=== PATIENT | male | born 1975 | race African-American/Black ===

== ENCOUNTER 2017-10-08 08:00 | Day surgery (SDC) | payer BC ==
[2017-10-05 12:34] VITALS: BMI 22.6
[~2017-10-08 08:00] MED LIST: DEXAMETHASONE SOD PHOSPHATE 10 MG/ML 1 ML VIAL IV ONE; LACTATED RINGERS 1,000 ML IV SCH; LIDOCAINE 1% 20 ML VIAL (10MG/ML) FOR IV START INTRADERMA PRN; MIDAZOLAM 2 MG/2 ML VIAL IV PRN; MORPHINE SULFATE 2 MG/ML SYRINGE IV PRN; ONDANSETRON 4 MG/2 ML VIAL IVP ONE; SCOPOLAMINE 1.5MG/72HR PATCH TRANSDERM ONE; ceFAZolin IN SWFI 2 GM/20 ML SYRINGE IVP ONE
[2017-10-08] MEDS ORDERED: fentaNYL (PF) 50 MCG/ML 2 ML AMP ONE (09:24)
[2017-10-08] MEDS ORDERED: PROPOFOL 10 MG/ML 20 ML VIAL IV ONE ×2 (09:24)
[2017-10-08] MEDS ORDERED: ROCURONIUM BROMIDE 10 MG/ML 10 ML VIAL IV ONE (09:24)
[2017-10-08] MEDS ORDERED: MIDAZOLAM 2 MG/2 ML VIAL ONE (09:24)
[2017-10-08] MEDS ORDERED: GLYCOPYRROLATE 0.2 MG/ML 2 ML VIAL ONE (09:24)
[2017-10-08] MEDS ORDERED: NEOSTIGMINE 1 MG/ML 10 ML VIAL ONE (09:24)
[2017-10-08] MEDS ORDERED: LIDOCAINE 1% INJ 10MG/ML (20 ML MDV) ONE (09:24)
[2017-10-08] MEDS ORDERED: ceFAZolin 1,000 MG in SODIUM CHLORIDE 0.9% 1,000 ML IRRIGATION ONE (10:01)
[2017-10-08] MEDS ORDERED: BUPIVACAINE (PF) 0.5% 30 ML VIAL SQ ONE (10:27)
[2017-10-08] MEDS ORDERED: ONDANSETRON 4 MG/2 ML VIAL IVP PRN (10:47)
[2017-10-08] MEDS ORDERED: diphenhydrAMINE 25 MG CAP PO PRN (10:47)
[2017-10-08] MEDS ORDERED: HYDROcodone/APAP 5-325MG 1 EACH TAB PO PRN (10:47)
[2017-10-08] MEDS ORDERED: MORPHINE SULFATE 4 MG/ML SYRINGE IVP PRN ×3 (10:47)
[2017-10-08] MEDS ORDERED: SENNOSIDES-DOCUSATE SODIUM 1 EACH TAB PO PRN (10:47)
[2017-10-08] MEDS ORDERED: ONDANSETRON 4 MG/2 ML VIAL IVP ONE (11:12)
[2017-10-08] MEDS ORDERED: MORPHINE SULFATE 5 MG/ML SYRINGE IVP ONE (11:13)
[2017-10-08] MEDS ORDERED: LACTATED RINGERS 1,000 ML IV ONE (11:21)
[2017-10-08] MEDS: LACTATED RINGERS 1,000 ML IV SCH (11:50)
[2017-10-08] MEDS: HYDROcodone/APAP 5-325MG 1 EACH TAB PO PRN ×2 (13:32→20:52)
[2017-10-08] MEDS: ceFAZolin IN SWFI 2 GM/20 ML SYRINGE IVP SCH ×2 (18:27→23:40)
[2017-10-08] MEDS: ASPIRIN 325 MG TAB PO SCH (23:40)
[2017-10-09] MEDS: HYDROcodone/APAP 5-325MG 1 EACH TAB PO PRN (06:49)
[2017-10-09 09:08] VITALS: BP 124/75; PULSE 60; RESP 16; TEMP 98.1
--- NOTE | 2017-10-09 09:14 | P.DS ---
Providers Attending physician: Margarito Ambriz Primary care physician: Stated None - Discharge Diagnosis(es) (1) Rupture of right Achilles tendon Current Visit: Yes Status: Acute (2) S/P Achilles tendon repair Current Visit: Yes Status: Acute Hospital Course: This is a 42-year-old male who sustained a tear to the right Achilles tendon on 09/26/2017 while playing basketball. The patient presents for evaluation. After discussion and consideration patient elects to proceed with right Achilles tendon repair. The patient is seen preoperatively by Dr. Ambriz and medically cleared for surgery by their primary care physician. Patient is admitted to [facility] on 10/08/2017 for total knee arthroplasty. The procedures performed without complication or sequelae. The patient is doing well postoperatively. Vital signs are stable on day of discharge. On day of discharge patient's splint is clean, dry and intact. There is no drainage noted at this time. Capillary refill is normal at less than 2 seconds. Patient is able to move the toes of the right foot without pain or difficulty. Neurovascular status to the right lower extremity is intact. Patient is discharged home in good condition. Please see med rec for accurate list of home medications. Plan - Discharge Summary Discharge Rx Participant: No New Discharge Prescriptions: New Aspirin 325 mg PO BID #60 tab HYDROcodone/APAP 5-325MG [[place] 5-325] 1 - 2 each PO Q4-6H PRN #90 tab PRN Reason: Pain No Action Cholecalciferol [Vitamin D3] 2,000 unit PO DAILY Biotin 10,000 mcg PO DAILY traMADol HCL [Ultram] 50 mg PO DIRECTED PRN PRN Reason: Pain Ibuprofen [Motrin] 800 mg PO DIRECTED PRN PRN Reason: Pain Acetaminophen Tab [Tylenol Tab] 500 mg PO Q6H Discharge Medication List Biotin 10,000 mcg PO DAILY 10/05/17 [History] Cholecalciferol [Vitamin D3] 2,000 unit PO DAILY 10/05/17 [History] Ibuprofen [Motrin] 800 mg PO DIRECTED PRN 10/05/17 [History] traMADol HCL [Ultram] 50 mg PO DIRECTED PRN 10/05/17 [History] Acetaminophen Tab [Tylenol Tab] 500 mg PO Q6H 10/08/17 [History] Aspirin 325 mg PO BID #60 tab 10/08/17 [Rx] HYDROcodone/APAP 5-325MG [[place] 5-325] 1 - 2 each PO Q4-6H PRN #90 tab 10/08/17 [Rx] Follow up Appointment(s)/Referral(s): Margarito Ambriz DO [Doctor of Osteopathic Medicine] - 10/18/17 3:20 pm Patient Instructions/Handouts: *Surgery [facility] - (Anesthesia) Discharge Instructions Outpatient Surgery, Achilles Tendon Rupture (GEN) Activity/Diet/Wound Care/Special Instructions: Keep splint intact. TANYA ETIENNE. Discharge Disposition: HOME SELF-CARE
[2017-10-09] MEDS: LACTATED RINGERS 1,000 ML IV SCH (09:27)
[2017-10-09] MEDS: ASPIRIN 325 MG TAB PO SCH (10:07)
--- NOTE | 2017-10-12 22:14 | OP ---
OPERATIVE REPORT DATE OF SERVICE: 10/08/2017 SURGEON: Dr Margarito Ambriz. DO NON DESTRUCTIVE TESTING SUPERVISOR: Madhavi Csaiano PA-C PREOPERATIVE DIAGNOSIS: Rupture of the Achilles tendon of the right ankle. FINAL DIAGNOSIS: Rupture of the Achilles tendon of the right ankle. PROCEDURE PERFORMED: Repair of a complete rupture of junction of the right Achilles tendon. PROCEDURE: Patient was evaluated in the perioperative area and the right extremity was marked. He was then taken to the operative suite. General anesthesia was performed by the department of anesthesiology. He was then placed in prone position and appropriate Betadine prep was carried out of the right ankle and foot. Sterile drapes were applied in the usual manner. Tourniquet elevated to 350 mmHg. A longitudinal incision was developed over the lateral aspect of the tendon rupture area. It was extended both proximally and distally. All the subcutaneous nerves were gently retracted. Direct visualization of the tear was present and the Achilles tendon sheath was then opened. A #2 Ethibond suture was then utilized in reapproximating this rupture. The circumferential suture was utilized with #3 Vicryl in running fashion. Irrigation was performed. Subcutaneous tissue was approximated with 2-0 Vicryl suture. Skin was approximated with 4-0 nylon suture in interrupted fashion. Betadine, Adaptic and sterile pressure dressing was applied. The OCL plaster splint was utilized with flexion of the foot. Patient was transferred to his room in satisfactory postoperative condition. GROSS PATHOLOGY: There was complete rupture right Achilles tendon. MMODL / IJN: [id number] / MTDD
== END 2017-10-09 11:00 | disposition home or self-care (01) ==
LOC: OR 08:00 → 3OBS 10:38 → OR 10-09 11:00
PROVIDERS: ATTEND Orthopaedic Surgery
DX: S86.011A Strain of right Achilles tendon, initial encounter (principal); X58.XXXA Exposure to other specified factors, initial encounter; Y93.67 Activity, basketball; Z87.891 Personal history of nicotine dependence; Z79.899 Other long term (current) drug therapy
CPT/HCPCS: 97161; 27650; J2250; J2270; J1100; J2710; J2405; J0690 ×2; J2001; J3010; J2704; J2274